=== PATIENT | female | born 2000 ===

== ENCOUNTER 2020-09-17 00:21 | Inpatient (IN) | payer BC ==
[2020-09-17] MEDS ORDERED: Sodium Chloride 0.9% 10 ML Syringe FLUSH PRN (00:44)
[2020-09-17] MEDS ORDERED: Misoprostol 200 MCG Tab PO PRN (00:44)
[2020-09-17] MEDS ORDERED: Lidocaine 1% 50 ML MDV INJECT PRN (00:44)
[2020-09-17] MEDS ORDERED: Nalbuphine 10 MG/1 ML Vial IVPUSH PRN (00:44)
[2020-09-17] MEDS ORDERED: Butorphanol 1 MG/ML SDV IVPUSH PRN (00:44)
[2020-09-17] MEDS ORDERED: Tranexamic Acid 1,000 MG in Sodium Chloride 0.9% 100 ML IV PRN (00:44)
[2020-09-17] MEDS ORDERED: Carboprost Tromethamine 250 MCG/1 ML Amp IM PRN (00:44)
[2020-09-17] MEDS ORDERED: Sodium Chloride 0.9% 2.5 ML Syringe FLUSH PRN (00:44)
[2020-09-17] MEDS ORDERED: Methylergonovine 0.2 MG/1 ML Amp IM PRN (00:44)
[2020-09-17] MEDS ORDERED: Sodium Chloride 0.9% 10 ML SDV IV PRN (00:44)
[2020-09-17] MEDS ORDERED: Water For Irrigation,Sterile 1,000 ML Container IRR PRN (00:44)
[2020-09-17] MEDS ORDERED: Oxytocin/0.9 % Sodium Chloride 30 UNIT/500 ML BAG IV SCH ×2 (00:45→05:15)
[2020-09-17] MEDS: Lactated Ringers 1,000 ML IV SCH ×3 (01:00→02:08)
[2020-09-17] MEDS ORDERED: Ropivacaine HCl/PF 100 ML ONE (01:24)
[2020-09-17] MEDS ORDERED: fentaNYL 100 MCG/2 ML SDV ONE (01:24)
--- NOTE | 2020-09-17 01:26 | PCM.LDHP ---
L&D History of Present Illness - General Date of Service: 09/17/20 Admit Problem/Dx: Patient Status Order with Admit Dx/Problem 09/17/20 00:44 Patient Status [ADT] Routine Admission Diagnosis/Problem Admission Diagnosis/Problem Source of Information: Patient History Limitations: Reports: No Limitations - History of Present Illness Introduction:: 20 year old G1 female at 37w2d (CRISTINA 10/06/2020 by LMP) presents to labor and delivery with regular contractions for the past 2-3 hours. Reports contractions are 2-5 minutes apart and pain 8/10 when they occur. Has tried Tylenol, increasing fluid intake and a warm shower with no relief. Also, complains of lightheadedness, dizziness but denies headache, visual changes or RUQ pain. Reports good movement. Denies leaking fluid or vaginal bleeding. - Related Data Allergies/Adverse Reactions: Allergies Allergy/AdvReac Type Severity Reaction Status Date / Time Penicillins Allergy Rash Verified 08/30/20 20:40 Home Medications: Home Meds Pnv #30/Iron Carb&Aspg/Fa/Om3 [OB Complete with DHA Softgel] 09/17/20 [History] H&P Review of Systems - Review of Systems: Review Of Systems: See Below General: Reports: No Symptoms Pulmonary: Reports: No Symptoms Cardiovascular: Reports: No Symptoms Gastrointestinal: Reports: Abdominal Pain Genitourinary: Reports: No Symptoms Musculoskeletal: Reports: Back Pain Skin: Reports: No Symptoms Psychiatric: Reports: No Symptoms Neurological: Reports: Dizziness L&D Exam - Exam Exam: See Below - OB Specific Contraction Frequency (min): 2-5 minutes Contraction Intensity: Moderate Movement: Active Heart Tones: Present Heart Tones per Min: 130 Heart Rate (FHR) Variability: Moderate (6-25 bmp) Presentation: Vertex - Johnson Score Johnson Score Cervix Position: Midposition (per nursing) Johnson Score Consistency: Soft Johnson Score Effacement: >80% Johnson Score Dilation: > 5 cm Johnson Score Infant's Station: -1 ,0 Johnson Score Total: 11 - Exam General: Alert Lungs: Normal Respiratory Effort Cardiovascular: Regular Rate GI/Abdominal Exam: Soft, Non-Tender Extremities: Normal Inspection, Non-Tender, No Pedal Edema Skin: Warm, Dry, Intact Psychiatric: Normal Mood Problem List Initiated/Reviewed/Updated: Yes Orders Last 24hrs: Active Orders 24 hr Category Date Time Status Patient Status [ADT] Routine ADT 09/17/20 00:44 Active Heart Tones [RC] CONTINUOUS Care 09/17/20 00:44 Active Non Stress Test [RC] PER UNIT ROUTINE Care 09/17/20 00:44 Active May Shower [RC] ASDIRECTED Care 09/17/20 00:44 Active Notify Provider [RC] PRN Care 09/17/20 00:44 Active Up ad Zandra [RC] ASDIRECTED Care 09/17/20 00:44 Active Vaginal Exam [RC] PRN Care 09/17/20 00:44 Active Vital Signs [RC] PER UNIT ROUTINE Care 09/17/20 00:44 Active CBC W/O DIFF,HEMOGRAM [HEME] Routine Lab 09/17/20 00:44 Ordered COMPREHENSIVE METABOLIC PN,CMP [CHEM] Routine Lab 09/17/20 00:44 Ordered CORONAVIRUS COVID-19 MARCELLO [MOLEC] Routine Lab 09/17/20 01:00 Received PROTEIN/CREATININE RATIO,URINE [URCHEM] Routine Lab 09/17/20 00:50 Ordered RPR (SYPHILIS SERO) W/ RFLX [REF] Routine Lab 09/17/20 00:44 Ordered TYPE AND SCREEN [BBK] Routine Lab 09/17/20 00:44 Ordered URIC ACID [CHEM] Routine Lab 09/17/20 00:44 Ordered URINALYSIS W/O MICROSCOPIC [UA W/O MICROSCOPIC] [URIN] Lab 09/17/20 00:51 Ordered Routine Butorphanol [Stadol] Med 09/17/20 00:44 Active 1 mg IVPUSH Q1H PRN Carboprost Tromethamine [Hemabate DS] Med 09/17/20 00:44 Active 250 mcg IM ASDIRECTED PRN Lactated Ringers [Ringers, Lactated] 1,000 ml Med 09/17/20 00:45 Active IV ASDIRECTED Lidocaine 1% [Xylocaine 1%] Med 09/17/20 00:44 Active 50 ml INJECT ONETIME PRN Methylergonovine [Methergine] Med 09/17/20 00:44 Active 0.2 mg IM ASDIRECTED PRN Nalbuphine [Nubain] Med 09/17/20 00:44 Active 10 mg IVPUSH Q1H PRN Oxytocin/0.9 % Sodium Chloride [Oxytocin 30 Unit/500 ML Med 09/17/20 00:45 Active -NS] 30 unit in 500 ml IV TITRATE Sodium Chloride 0.9% [Normal Saline] Med 09/17/20 00:44 Active 10 ml IV ASDIRECTED PRN Sodium Chloride 0.9% [Saline Flush] Med 09/17/20 00:44 Active 10 ml FLUSH ASDIRECTED PRN Sodium Chloride 0.9% [Saline Flush] Med 09/17/20 00:44 Active 2.5 ml FLUSH ASDIRECTED PRN Tranexamic Acid [Cyklokapron] 1,000 mg Med 09/17/20 00:44 Active Sodium Chloride 0.9% [Normal Saline] 100 ml IV ONETIME Water For Irrigation,Sterile [Sterile Water for Med 09/17/20 00:44 Active Irrigation] 1,000 ml IRR ASDIRECTED PRN miSOPROStoL [Cytotec] Med 09/17/20 00:44 Active 200 mcg PO ONETIME PRN Scalp Electrode [WOMSER] Per Unit Routine Oth 09/17/20 00:44 Ordered Peripheral IV Insertion Adult [OM.PC] Routine Oth 09/17/20 00:44 Ordered Resuscitation Status Routine Resus Stat 09/17/20 00:44 Ordered Medication Orders Butorphanol Tartrate (Stadol) 1 mg IVPUSH Q1H PRN PRN Reason: Pain Carboprost Tromethamine (Hemabate Ds) 250 mcg IM ASDIRECTED PRN PRN Reason: Post Hemorrhage Oxytocin/Sodium Chloride (Oxytocin 30 Unit/500 Ml-Ns) 30 unit in 500 mls @ 999 mls/hr IV TITRATE YOLANDA Tranexamic Acid 1,000 mg/ (Sodium Chloride) 110 mls @ 660 mls/hr IV ONETIME PRN PRN Reason: Bleeding Lactated Ringer's (Ringers, Lactated) 1,000 mls @ 150 mls/hr IV ASDIRECTED YOLANDA Lidocaine HCl (Xylocaine 1%) 50 ml INJECT ONETIME PRN PRN Reason: Laceration repair Methylergonovine Maleate (Methergine) 0.2 mg IM ASDIRECTED PRN PRN Reason: Post Hemorrhage Misoprostol (Cytotec) 200 mcg PO ONETIME PRN PRN Reason: Post Hemorrhage Nalbuphine HCl (Nubain) 10 mg IVPUSH Q1H PRN PRN Reason: Pain (severe 7-10) Sodium Chloride (Saline Flush) 10 ml FLUSH ASDIRECTED PRN PRN Reason: Keep Vein Open Sodium Chloride (Saline Flush) 2.5 ml FLUSH ASDIRECTED PRN PRN Reason: Keep Vein Open Sodium Chloride (Normal Saline) 10 ml IV ASDIRECTED PRN PRN Reason: IV Use Sterile Water (Sterile Water For Irrigation) 1,000 ml IRR ASDIRECTED PRN PRN Reason: delivery Assessment/Plan Comment:: 20 year old G1 female at 37w2d (CRISTINA 10/06/2020 by LMP) in spontaneous labor * Admit to labor and delivery * May receive epidural PRN for pain management * Rh positive, rubella immune, GBS negative * History of proteinuria and mild range BP upon admission, preeclampsia labs ordered * COVID-19 test pending Dispo: stable. Anticipate expectant management of labor.
--- NOTE | 2020-09-17 01:45 | PCM.PREANE ---
Preanesthetic Assessment - Anesthesia/Transfusion/Family Hx Anesthesia History: No Prior Anesthesia Family History of Anesthesia Reaction: No - Physical Assessment NPO Status Date: 09/16/20 NPO Status Time: 23:00 Height: 1.6 m ASA Class: 2 - Lab Values: Laboratory Last Values WBC 20.01 K/uL (4.0-11.0) H 09/17/20 00:56 RBC 4.54 M/uL (4.30-5.90) 09/17/20 00:56 Hgb 12.9 g/dL (12.0-16.0) 09/17/20 00:56 Hct 39.2 % (36.0-46.0) 09/17/20 00:56 MCV 86.3 fL (80.0-98.0) 09/17/20 00:56 MCH 28.4 pg (27.0-32.0) 09/17/20 00:56 MCHC 32.9 g/dL (31.0-37.0) 09/17/20 00:56 RDW Std Deviation 41.9 fl (28.0-62.0) 09/17/20 00:56 RDW Coeff of Helen 13 % (11.0-15.0) 09/17/20 00:56 Plt Count 491 K/uL (150-400) H 09/17/20 00:56 MPV 11.00 fL (7.40-12.00) 09/17/20 00:56 Nucleated RBC % 0.1 /100WBC 09/17/20 00:56 Nucleated RBCs # 0 K/uL 09/17/20 00:56 Urine Color YELLOW 09/17/20 01:00 Urine Appearance SLT CLOUDY 09/17/20 01:00 Urine pH 6.5 (5.0-8.0) 09/17/20 01:00 Ur Specific [place] 1.015 (1.001-1.035) 09/17/20 01:00 Urine Protein NEGATIVE mg/dL (NEGATIVE) 09/17/20 01:00 Urine Glucose (UA) NEGATIVE mg/dL (NEGATIVE) 09/17/20 01:00 Urine Ketones NEGATIVE mg/dL (NEGATIVE) 09/17/20 01:00 Urine Occult Blood NEGATIVE (NEGATIVE) 09/17/20 01:00 Urine Nitrite NEGATIVE (NEGATIVE) 09/17/20 01:00 Urine Bilirubin NEGATIVE (NEGATIVE) 09/17/20 01:00 Urine Urobilinogen 0.2 EU/dL (<2.0) 09/17/20 01:00 Ur Leukocyte Esterase TRACE (NEGATIVE) H 09/17/20 01:00 Ur Random Creatinine 87.4 mg/dL 09/17/20 01:00 U Random Total Protein 29.0 mg/dL (<11.9) H 09/17/20 01:00 Protein/Creatinin Ratio 0.3 09/17/20 01:00 - Allergies Allergies/Adverse Reactions: Allergies Allergy/AdvReac Type Severity Reaction Status Date / Time Penicillins Allergy Rash Verified 08/30/20 20:40 - Acknowledgements Anesthesia Type Planned: Epidural Pt an Appropriate Candidate for the Planned Anesthesia: Yes Alternatives and Risks of Anesthesia Discussed w Pt/Guardian: Yes Pt/Guardian Understands and Agrees with Anesthesia Plan: Yes PreAnesthesia Questionnaire - HOME MEDS Home Medications: Home Meds Pnv #30/Iron Carb&Aspg/Fa/Om3 [OB Complete with DHA Softgel] 09/17/20 [History] - CURRENT (IN HOUSE) MEDS Current Meds: Current Medications Butorphanol Tartrate (Stadol) 1 mg IVPUSH Q1H PRN PRN Reason: Pain Carboprost Tromethamine (Hemabate Ds) 250 mcg IM ASDIRECTED PRN PRN Reason: Post Hemorrhage Oxytocin/Sodium Chloride (Oxytocin 30 Unit/500 Ml-Ns) 30 unit in 500 mls @ 999 mls/hr IV TITRATE [facility] Tranexamic Acid 1,000 mg/ (Sodium Chloride) 110 mls @ 660 mls/hr IV ONETIME PRN PRN Reason: Bleeding Lactated Ringer's (Ringers, Lactated) 1,000 mls @ 150 mls/hr IV ASDIRECTED [facility] Last Admin: 09/17/20 01:00 Dose: 999 mls/hr Documented by: Lidocaine HCl (Xylocaine 1%) 50 ml INJECT ONETIME PRN PRN Reason: Laceration repair Methylergonovine Maleate (Methergine) 0.2 mg IM ASDIRECTED PRN PRN Reason: Post Hemorrhage Misoprostol (Cytotec) 200 mcg PO ONETIME PRN PRN Reason: Post Hemorrhage Nalbuphine HCl (Nubain) 10 mg IVPUSH Q1H PRN PRN Reason: Pain (severe 7-10) Sodium Chloride (Saline Flush) 10 ml FLUSH ASDIRECTED PRN PRN Reason: Keep Vein Open Sodium Chloride (Saline Flush) 2.5 ml FLUSH ASDIRECTED PRN PRN Reason: Keep Vein Open Sodium Chloride (Normal Saline) 10 ml IV ASDIRECTED PRN PRN Reason: IV Use Sterile Water (Sterile Water For Irrigation) 1,000 ml IRR ASDIRECTED PRN PRN Reason: delivery Discontinued Medications Fentanyl (Sublimaze) Confirm Administered Dose 100 mcg .ROUTE .STK-MED ONE Stop: 09/17/20 01:25 Ropivacaine (Naropin 0.2%) Confirm Administered Dose 100 mls @ as directed .ROUTE .STK-MED ONE Stop: 09/17/20 01:25
--- NOTE | 2020-09-17 01:48 | PCM.PRNOTE ---
- Free Text/Narrative Note: Anes Note Patient requests epidural for L&D. Sitting position, Level L3-L4 midline approach. Sterile technique. Chloraprep scrub to lumbar area. Sterile fenestrated drape applied. Epidural space easily achieved single attempt with ease using ESCOBAR technique. ESCOBAR at 3 cm. Cath threaded 5 cm with ease. Cath secured a t skin using sterile clear adhesive dressing. Test 0138 3 cc 1.5% lido with epi. 0141 Load 10 cc 0.2% ropiviciane with 1 mcg cc fentanyl added in slow divided doses. 0145 Pump started with 90 cc same solution. Rate is 8 cc hr with 6 cc q 20 min prn bolus. [place] well. Time with patient [id number] Abundio Fenton CRNA
[2020-09-17 01:51] LABS: BLOOD UREA NITROGEN,BUN 9 mg/dL (7.0-18.0); CARBON DIOXIDE,CO2 22.4 mmol/L (21.0-32.0); CHLORIDE,CL 102 mmol/L (98-107); GLUCOSE RANDOM 84 mg/dL (74-106); SODIUM,NA 140 mmol/L (136-145)
[2020-09-17] MEDS ORDERED: Terbutaline 1 MG/ML SDV SUBCUT PRN (05:01)
[2020-09-17] MEDS ORDERED: oxyCODONE 5 MG Tab PO PRN (09:34)
[2020-09-17] MEDS ORDERED: Bisacodyl 10 MG Supp RECTAL PRN (09:34)
[2020-09-17] MEDS ORDERED: Lanolin 100% Cream 7 GM Tube TOP PRN (09:34)
[2020-09-17] MEDS ORDERED: Acetaminophen 500 MG Tab PO PRN (09:34)
[2020-09-17] MEDS ORDERED: Ibuprofen 400 MG Tab PO PRN (09:34)
[2020-09-17] MEDS ORDERED: Benzocaine/Menthol 20%-0.5% Spray 78 GM Cannister TOP PRN (09:34)
[2020-09-17] MEDS ORDERED: Witch Hazel Medicated Pads 40/Jar TOP PRN (09:34)
--- NOTE | 2020-09-17 09:46 | PCM.DEL ---
L & D Note - General Info Date of Service: 09/17/20 Mother's Due Date: 10/06/20 - Delivery Note Labor: Augmented by Oxytocin Delivery Outcome: Livebirth Infant Delivery Method: Spontaneous Vaginal Delivery-Single Presentation: Left Occiput Anterior (FLAVIA) Nuchal Cord: None Anesthesia Type: Epidural Amniotic Fluid Description: Clear Episiotomy Type: None Laceration: 2nd Degree Suture type: Vicryl Suture size: 3-0 Placenta: Intact, Spontaneous Cord: 3 Vessels Estimated Blood Loss: 250 Resuscitation Needed: No Harris: Bulb Syringe, Stimulated, Warmed, [place] Used Score 1 min: 9 Score 5 min: 9 Delivery Comments (Free Text/Narrative):: Dictation #[id number] - General Info Date of Service: 09/17/20 Admission Dx/Problem (Free Text): Patient Status Order with Admit Dx/Problem 09/17/20 00:44 Patient Status [ADT] Routine Admission Diagnosis/Problem Admission Diagnosis/Problem - Patient Data Weight - Most Recent: 133 lb Lab Results Last 24 Hours: Laboratory Results - last 24 hr 09/17/20 09/17/20 09/17/20 Range/Units 00:56 00:56 00:56 WBC 20.01 H (4.0-11.0) K/uL RBC 4.54 (4.30-5.90) M/uL Hgb 12.9 (12.0-16.0) g/dL Hct 39.2 (36.0-46.0) % MCV 86.3 (80.0-98.0) fL MCH 28.4 (27.0-32.0) pg MCHC 32.9 (31.0-37.0) g/dL RDW Std Deviation 41.9 (28.0-62.0) fl RDW Coeff of Helen 13 (11.0-15.0) % Plt Count 491 H (150-400) K/uL MPV 11.00 (7.40-12.00) fL Nucleated RBC % 0.1 /100WBC Nucleated RBCs # 0 K/uL Sodium 140 (136-145) mmol/L Potassium 4.0 (3.5-5.1) mmol/L Chloride 102 (98-107) mmol/L Carbon Dioxide 22.4 (21.0-32.0) mmol/L BUN 9 (7.0-18.0) mg/dL Creatinine 0.6 (0.6-1.0) mg/dL Est Cr Clr Drug Dosing TNP Estimated GFR (MDRD) > 60.0 ml/min Glucose 84 (74-106) mg/dL Uric Acid 3.0 (2.6-7.2) mg/dL Calcium 9.9 (8.5-10.1) mg/dL Total Bilirubin 0.3 (0.2-1.0) mg/dL AST 14 L (15-37) IU/L ALT 23 (14-63) IU/L Alkaline Phosphatase 208 H (46-116) U/L Total Protein 7.6 (6.4-8.2) g/dL Albumin 3.4 (3.4-5.0) g/dL Globulin 4.2 H (2.6-4.0) g/dL Albumin/Globulin Ratio 0.8 L (0.9-1.6) Urine Color Urine Appearance Urine pH (5.0-8.0) Ur Specific [place] (1.001-1.035) Urine Protein (NEGATIVE) mg/dL Urine Glucose (UA) (NEGATIVE) mg/dL Urine Ketones (NEGATIVE) mg/dL Urine Occult Blood (NEGATIVE) Urine Nitrite (NEGATIVE) Urine Bilirubin (NEGATIVE) Urine Urobilinogen (<2.0) EU/dL Ur Leukocyte Esterase (NEGATIVE) Ur Random Creatinine mg/dL U Random Total Protein (<11.9) mg/dL Protein/Creatinin Ratio SARS-CoV-2 RNA (MARCELLO) (NEGATIVE) Blood Type A POSITIVE Antibody Screen NEGATIVE 09/17/20 09/17/20 09/17/20 Range/Units 01:00 01:00 01:00 WBC (4.0-11.0) K/uL RBC (4.30-5.90) M/uL Hgb (12.0-16.0) g/dL Hct (36.0-46.0) % MCV (80.0-98.0) fL MCH (27.0-32.0) pg MCHC (31.0-37.0) g/dL RDW Std Deviation (28.0-62.0) fl RDW Coeff of Helen (11.0-15.0) % Plt Count (150-400) K/uL MPV (7.40-12.00) fL Nucleated RBC % /100WBC Nucleated RBCs # K/uL Sodium (136-145) mmol/L Potassium (3.5-5.1) mmol/L Chloride (98-107) mmol/L Carbon Dioxide (21.0-32.0) mmol/L BUN (7.0-18.0) mg/dL Creatinine (0.6-1.0) mg/dL Est Cr Clr Drug Dosing Estimated GFR (MDRD) ml/min Glucose (74-106) mg/dL Uric Acid (2.6-7.2) mg/dL Calcium (8.5-10.1) mg/dL Total Bilirubin (0.2-1.0) mg/dL AST (15-37) IU/L ALT (14-63) IU/L Alkaline Phosphatase (46-116) U/L Total Protein (6.4-8.2) g/dL Albumin (3.4-5.0) g/dL Globulin (2.6-4.0) g/dL Albumin/Globulin Ratio (0.9-1.6) Urine Color YELLOW Urine Appearance SLT CLOUDY Urine pH 6.5 (5.0-8.0) Ur Specific [place] 1.015 (1.001-1.035) Urine Protein NEGATIVE (NEGATIVE) mg/dL Urine Glucose (UA) NEGATIVE (NEGATIVE) mg/dL Urine Ketones NEGATIVE (NEGATIVE) mg/dL Urine Occult Blood NEGATIVE (NEGATIVE) Urine Nitrite NEGATIVE (NEGATIVE) Urine Bilirubin NEGATIVE (NEGATIVE) Urine Urobilinogen 0.2 (<2.0) EU/dL Ur Leukocyte Esterase TRACE H (NEGATIVE) Ur Random Creatinine 87.4 mg/dL U Random Total Protein 29.0 H (<11.9) mg/dL Protein/Creatinin Ratio 0.3 SARS-CoV-2 RNA (MARCELLO) NEGATIVE (NEGATIVE) Blood Type Antibody Screen Med Orders - Current: Current Medications Acetaminophen (Tylenol Extra Strength) 500 mg PO Q4H PRN PRN Reason: Pain Acetaminophen (Tylenol Extra Strength) 1,000 mg PO Q4H PRN PRN Reason: Pain Benzocaine/Menthol (Dermoplast Pain Relief 20%-0.5% [employer]) 78 gm TOP ASDIRECTED PRN PRN Reason: Perineal Comfort Measure Bisacodyl (Dulcolax) 10 mg RECTAL ONETIME PRN PRN Reason: Constipation Butorphanol Tartrate (Stadol) 1 mg IVPUSH Q1H PRN PRN Reason: Pain Carboprost Tromethamine (Hemabate Ds) 250 mcg IM ASDIRECTED PRN PRN Reason: Post Hemorrhage Docusate Sodium (Colace) 100 mg PO BID PRN PRN Reason: Constipation Emollient Ointment (Lansinoh Hpa) 0 gm TOP ASDIRECTED PRN PRN Reason: Sore Nipples Oxytocin/Sodium Chloride (Oxytocin 30 Unit/500 Ml-Ns) 30 unit in 500 mls @ 999 mls/hr IV TITRATE YOLANDA Tranexamic Acid 1,000 mg/ (Sodium Chloride) 110 mls @ 660 mls/hr IV ONETIME PRN PRN Reason: Bleeding Lactated Ringer's (Ringers, Lactated) 1,000 mls @ 150 mls/hr IV ASDIRECTED YOLANDA Last Admin: 09/17/20 01:29 Dose: 999 mls/hr Documented by: Oxytocin/Sodium Chloride (Oxytocin 30 Unit/500 Ml-Ns) 30 unit in 500 mls @ 2 mls/hr IV TITRATE YOLANDA; Protocol Last Titration: 09/17/20 07:15 Dose: 6 munits/min, 6 mls/hr Documented by: Ibuprofen (Motrin) 400 mg PO Q4H PRN PRN Reason: Pain Ibuprofen (Motrin) 800 mg PO Q6H PRN PRN Reason: Pain Lidocaine HCl (Xylocaine 1%) 50 ml INJECT ONETIME PRN PRN Reason: Laceration repair Methylergonovine Maleate (Methergine) 0.2 mg IM ASDIRECTED PRN PRN Reason: Post Hemorrhage Misoprostol (Cytotec) 200 mcg PO ONETIME PRN PRN Reason: Post Hemorrhage Nalbuphine HCl (Nubain) 10 mg IVPUSH Q1H PRN PRN Reason: Pain (severe 7-10) Oxycodone HCl (Oxycodone) 5 mg PO Q2H PRN PRN Reason: Pain Sodium Chloride (Saline Flush) 10 ml FLUSH ASDIRECTED PRN PRN Reason: Keep Vein Open Sodium Chloride (Saline Flush) 2.5 ml FLUSH ASDIRECTED PRN PRN Reason: Keep Vein Open Sodium Chloride (Normal Saline) 10 ml IV ASDIRECTED PRN PRN Reason: IV Use Sterile Water (Sterile Water For Irrigation) 1,000 ml IRR ASDIRECTED PRN PRN Reason: delivery Terbutaline Sulfate (Brethine) 0.25 mg SUBCUT ASDIRECTED PRN PRN Reason: Tacysystole Witch Cassandra (Tucks) 1 pad TOP ASDIRECTED PRN PRN Reason: comfort care Discontinued Medications Fentanyl (Sublimaze) Confirm Administered Dose 100 mcg .ROUTE .STK-MED ONE Stop: 09/17/20 01:25 Ropivacaine (Naropin 0.2%) Confirm Administered Dose 100 mls @ as directed .ROUTE .STK-MED ONE Stop: 09/17/20 01:25 - Problem List Review Problem List Initiated/Reviewed/Updated: Yes - My Orders Last 24 Hours: My Active Orders 09/17/20 00:44 May Shower [RC] ASDIRECTED Notify Provider [RC] PRN Up ad Zandra [RC] ASDIRECTED Vital Signs [RC] PER UNIT ROUTINE Butorphanol [Stadol] 1 mg IVPUSH Q1H PRN Carboprost Tromethamine [Hemabate DS] 250 mcg IM ASDIRECTED PRN Lidocaine 1% [Xylocaine 1%] 50 ml INJECT ONETIME PRN Methylergonovine [Methergine] 0.2 mg IM ASDIRECTED PRN Nalbuphine [Nubain] 10 mg IVPUSH Q1H PRN Sodium Chloride 0.9% [Normal Saline] 10 ml IV ASDIRECTED PRN Sodium Chloride 0.9% [Saline Flush] 10 ml FLUSH ASDIRECTED PRN Sodium Chloride 0.9% [Saline Flush] 2.5 ml FLUSH ASDIRECTED PRN Tranexamic Acid [Cyklokapron] 1,000 mg Sodium Chloride 0.9% [Normal Saline] 100 ml IV ONETIME Water For Irrigation,Sterile [Sterile Water for Irrigation] 1,000 ml IRR ASDIRECTED PRN miSOPROStoL [Cytotec] 200 mcg PO ONETIME PRN Scalp Electrode [WOMSER] Per Unit Routine Peripheral IV Insertion Adult [OM.PC] Routine Resuscitation Status Routine 09/17/20 00:45 Lactated Ringers [Ringers, Lactated] 1,000 ml IV ASDIRECTED Oxytocin/0.9 % Sodium Chloride [Oxytocin 30 Unit/500 ML-NS] 30 unit in 500 ml IV TITRATE 09/17/20 00:56 RPR (SYPHILIS SERO) W/ RFLX [REF] Routine 09/17/20 05:01 Bedrest Bathroom Privileges [RC] ASDIRECTED Notify Provider [RC] PRN Oxygen Therapy [RC] ASDIRECTED Vital Signs [RC] PER UNIT ROUTINE Terbutaline [Brethine] 0.25 mg SUBCUT ASDIRECTED PRN 09/17/20 05:15 Oxytocin/0.9 % Sodium Chloride [Oxytocin 30 Unit/500 ML-NS] 30 unit in 500 ml IV TITRATE Medication Administration Instruction [OM.PC] Q3H 09/17/20 09:34 Acetaminophen [Tylenol Extra Strength] 1,000 mg PO Q4H PRN Acetaminophen [Tylenol Extra Strength] 500 mg PO Q4H PRN Benzocaine/Menthol [Dermoplast Pain Relief 20%-0.5% [employer]] 78 gm TOP ASDIRECTED PRN Docusate Sodium [Colace] 100 mg PO BID PRN Ibuprofen [Motrin] 400 mg PO Q4H PRN Ibuprofen [Motrin] 800 mg PO Q6H PRN Lanolin [Lansinoh HPA] See Dose Instructions TOP ASDIRECTED PRN bisacodyL [Dulcolax] 10 mg RECTAL ONETIME PRN oxyCODONE 5 mg PO Q2H PRN witch Cassandra [Tucks] 1 pad TOP ASDIRECTED PRN 09/17/20 09:35 Patient Status [ADT] Routine May Shower [RC] ASDIRECTED Up ad Zandra [RC] ASDIRECTED Vital Signs [RC] PER UNIT ROUTINE Assess Lochia [WOMSER] Per Unit Routine Assess Uterine Involution [WOMSER] Per Unit Routine Peripheral IV Discontinue [OM.PC] Routine 09/18/20 05:11 HEMOGLOBIN/HEMATOCRIT,HH [HEME] Timed - Plan Plan:: 20 year old G1 now P1 female s/p spontaneous vaginal delivery at 37w2d Routine cares * Rh positive, rubella immune, GBS negative * COVID-19 negative * Hgb 12.9 upon admission, EBL 250cc * Encourage ambulation and fluid intake today * PO pain medication ordered PRN * Plans to bottle feed Proteinuria * Asymptomatic * BP normotensive * Will continue to monitor symptoms/VS Dispo: stable. Anticipate routine course.
[2020-09-17] MEDS: Docusate Sodium 100 MG Cap PO PRN (10:58)
[2020-09-17] MEDS: Ibuprofen 800 MG Tab PO PRN ×2 (10:59→20:03)
--- NOTE | 2020-09-17 14:29 | OR ---
SURGEON: BLESSING BROWN MD DATE OF PROCEDURE: 09/17/2020 PREOPERATIVE DIAGNOSES: 1. A 37-2/7 weeks' intrauterine . 2. Spontaneous labor. 3. Proteinuria. POSTOPERATIVE DIAGNOSES: 1. A 37-2/7 weeks' intrauterine . 2. Spontaneous labor. 3. Proteinuria. PROCEDURE: Spontaneous vaginal delivery, second-degree perineal laceration repair PRIMARY SURGEON: Blessing Brown MD ANESTHESIA: Epidural. COMPLICATIONS: None known. ESTIMATED BLOOD LOSS: 250 mL. BRIEF HISTORY: The patient is a 20-year-old, 1 female, who presented to Labor and Delivery at 37 weeks and 2 days in spontaneous labor. Upon admission, her cervical exam was 4 to 5 cm, 80% effaced, and 0 station with contractions every 2 to 5 minutes. The patient has a recent history of proteinuria noted at the clinic, however, her blood pressures have been normotensive. Initial blood pressure upon arrival to Labor and Delivery was mild range. Preeclampsia labs were then obtained. FINDINGS: Normal-appearing female in cephalic presentation. Clear amniotic fluid. score of 9 and 9. Weight not yet available at time of dictation. Second- degree perineal laceration. DESCRIPTION OF PROCEDURE: The patient was admitted to Labor and Delivery at approximately 0045 on 09/17/2020. She received an epidural shortly thereafter. After receiving epidural, her contractions spaced out and Pitocin at 2 units was then initiated. Cervical exam at approximately 8 a.m. was 6/90/0. Artificial rupture of membranes was performed at that time after consent was obtained. A small amount of clear fluid noted. At approximately 9 a.m., nursing staff called to report the patient completely dilated and +2 station. Upon my arrival to the room, shortly thereafter, the patient started pushing efforts with good descent after a few contractions. 's head delivered atraumatically followed by the rest of the body. Nose and mouth suctioned with bulb. Cord clamped and cut after 60 seconds. The infant handed to mother and awaiting nursing staff. The placenta was then delivered intact after cord blood gases were obtained. Inspection of the cervix, vaginal sidewalls, and perineum revealed a second-degree perineal laceration which was repaired with a 3-0 Vicryl in the normal fashion. Hemostasis was then noted. Sponge, lap, and needle counts were correct x2. The patient tolerated the procedure well, and and mother are recovering in delivery room at this time. ANA MARIA IBANEZ /[id number] MTDD
[2020-09-17] MEDS: Acetaminophen 500 MG Tab PO PRN (16:14)
[2020-09-18] MEDS: Docusate Sodium 100 MG Cap PO PRN (00:53)
[2020-09-18] MEDS: Acetaminophen 500 MG Tab PO PRN (00:53)
[2020-09-18] MEDS: Ibuprofen 800 MG Tab PO PRN ×2 (03:45→14:05)
--- NOTE | 2020-09-18 06:50 | PCM48HPAN ---
Post Anesthesia Note - EVALUATION WITHIN 48HRS OF ANESTHETIC Vital Signs in Normal Range: Yes Patient Participated in Evaluation: Yes Respiratory Function Stable: Yes Airway Patent: Yes Cardiovascular Function Stable: Yes Hydration Status Stable: Yes Pain Control Satisfactory: Yes Nausea and Vomiting Control Satisfactory: Yes Mental Status Recovered: Yes Vital Signs: Last Vital Signs Temp 36.6 C 09/18/20 03:45 Pulse 83 09/18/20 03:45 Resp 16 09/18/20 03:45 BP 131/72 09/18/20 03:45 Pulse Ox 96 09/18/20 03:45
--- NOTE | 2020-09-18 08:56 | PCM.PNPP ---
- General Info Date of Service: 09/18/20 Functional Status: Reports: Pain Controlled, Tolerating Diet, Ambulating, Urinating - Review of Systems General: Reports: Fatigue. Denies: Fever, Weakness Pulmonary: Denies: Shortness of Breath Cardiovascular: Denies: Chest Pain, Palpitations, Lightheadedness Gastrointestinal: Denies: Abdominal Pain, Nausea, Vomiting Genitourinary: Denies: Flank Pain Musculoskeletal: Reports: No Symptoms Skin: Reports: No Symptoms Neurological: Reports: No Symptoms Psychiatric: Reports: No Symptoms - General Info Date of Service: 09/18/20 - Patient Data Vital Signs - Most Recent: Last Vital Signs Temp 36.4 C 09/18/20 08:26 Pulse 84 09/18/20 08:26 Resp 17 09/18/20 08:26 BP 121/86 09/18/20 08:26 Pulse Ox 97 09/18/20 08:26 Weight - Most Recent: 60.328 kg Lab Results - Last 24 Hours: Laboratory Results - last 24 hr 09/18/20 Range/Units 06:10 Hgb 9.1 L (12.0-16.0) g/dL Hct 28.1 L (36.0-46.0) % Med Orders - Current: Current Medications Acetaminophen (Tylenol Extra Strength) 500 mg PO Q4H PRN PRN Reason: Pain Acetaminophen (Tylenol Extra Strength) 1,000 mg PO Q4H PRN PRN Reason: Pain Last Admin: 09/18/20 00:53 Dose: 1,000 mg Documented by: Benzocaine/Menthol (Dermoplast Pain Relief 20%-0.5% Holly) 78 gm TOP ASDIRECTED PRN PRN Reason: Perineal Comfort Measure Last Admin: 09/17/20 10:57 Dose: 1 canister Documented by: Bisacodyl (Dulcolax) 10 mg RECTAL ONETIME PRN PRN Reason: Constipation Butorphanol Tartrate (Stadol) 1 mg IVPUSH Q1H PRN PRN Reason: Pain Carboprost Tromethamine (Hemabate Ds) 250 mcg IM ASDIRECTED PRN PRN Reason: Post Hemorrhage Docusate Sodium (Colace) 100 mg PO BID PRN PRN Reason: Constipation Last Admin: 09/18/20 00:53 Dose: 100 mg Documented by: Emollient Ointment (Lansinoh Hpa) 0 gm TOP ASDIRECTED PRN PRN Reason: Sore Nipples Oxytocin/Sodium Chloride (Oxytocin 30 Unit/500 Ml-Ns) 30 unit in 500 mls @ 999 mls/hr IV TITRATE YOLANDA Tranexamic Acid 1,000 mg/ (Sodium Chloride) 110 mls @ 660 mls/hr IV ONETIME PRN PRN Reason: Bleeding Lactated Ringer's (Ringers, Lactated) 1,000 mls @ 150 mls/hr IV ASDIRECTED YOLANDA Last Admin: 09/17/20 01:29 Dose: 999 mls/hr Documented by: Oxytocin/Sodium Chloride (Oxytocin 30 Unit/500 Ml-Ns) 30 unit in 500 mls @ 2 mls/hr IV TITRATE YOLANDA; Protocol Last Titration: 09/17/20 07:15 Dose: 6 munits/min, 6 mls/hr Documented by: Ibuprofen (Motrin) 400 mg PO Q4H PRN PRN Reason: Pain Ibuprofen (Motrin) 800 mg PO Q6H PRN PRN Reason: Pain Last Admin: 09/18/20 03:45 Dose: 800 mg Documented by: Lidocaine HCl (Xylocaine 1%) 50 ml INJECT ONETIME PRN PRN Reason: Laceration repair Methylergonovine Maleate (Methergine) 0.2 mg IM ASDIRECTED PRN PRN Reason: Post Hemorrhage Misoprostol (Cytotec) 200 mcg PO ONETIME PRN PRN Reason: Post Hemorrhage Nalbuphine HCl (Nubain) 10 mg IVPUSH Q1H PRN PRN Reason: Pain (severe 7-10) Oxycodone HCl (Oxycodone) 5 mg PO Q2H PRN PRN Reason: Pain Sodium Chloride (Saline Flush) 10 ml FLUSH ASDIRECTED PRN PRN Reason: Keep Vein Open Sodium Chloride (Saline Flush) 2.5 ml FLUSH ASDIRECTED PRN PRN Reason: Keep Vein Open Sodium Chloride (Normal Saline) 10 ml IV ASDIRECTED PRN PRN Reason: IV Use Sterile Water (Sterile Water For Irrigation) 1,000 ml IRR ASDIRECTED PRN PRN Reason: delivery Terbutaline Sulfate (Brethine) 0.25 mg SUBCUT ASDIRECTED PRN PRN Reason: Tacysystole Witch Cassandra (Tucks) 1 pad TOP ASDIRECTED PRN PRN Reason: comfort care Last Admin: 09/17/20 10:58 Dose: 1 tub Documented by: Discontinued Medications Fentanyl (Sublimaze) Confirm Administered Dose 100 mcg .ROUTE .STK-MED ONE Stop: 09/17/20 01:25 Ropivacaine (Naropin 0.2%) Confirm Administered Dose 100 mls @ as directed .ROUTE .STK-MED ONE Stop: 09/17/20 01:25 - Interaction Support Person: Significant Other - Recovery Exam Fundal Tone: Firm Fundal Level: 1 Fingerbreadths Below Umbilicus Fundal Placement: Midline Lochia Amount: Scant Lochia Color: Rubra/Red Perineum Description: Edematous Episiotomy/Laceration: Approximated Bladder Status: Voiding Urinary Elimination: Voided - Exam General: Alert, Oriented Lungs: Normal Respiratory Effort Cardiovascular: Regular Rate GI/Abdominal Exam: Normal Bowel Sounds, Soft Extremities: Pedal Edema (trace). No: Diane's Sign Skin: Warm, Dry, Intact Neurological: No New Focal Deficit Psy/Mental Status: Alert, Normal Affect, Normal Mood - Problem List & Annotations (1) Vaginal delivery SNOMED Code(s): 984850778 Code(s): O80 - ENCOUNTER FOR FULL-TERM UNCOMPLICATED DELIVERY Status: Acute Current Visit: Yes - Problem List Review Problem List Initiated/Reviewed/Updated: Yes - My Orders Last 24 Hours: My Active Orders 09/18/20 08:54 Ready for Discharge [RC] PER UNIT ROUTINE - Assessment Assessment:: PPD 1 status post - Plan Plan:: 20 year old G1 now P1 female s/p spontaneous vaginal delivery at 37w2d PPD1. Patient is doing well overall, bottlefeeding. Has good social support from mother and boyfriend. Is ready to go home today. Discharge to home. Discharge instructions reviewed. Follow up at [facility] 4 weeks.
== END 2020-09-18 14:35 | disposition home or self-care (01) | DRG 560 ==
LOC: MW.OB 00:21 → MW.OBCHECK 00:21 → MW.OB 00:44 → MW.OBCHECK 00:44 → UNDOADMOB 00:44 → MW.OB 09:25 → INTOOBSV 09-18 09:25 → OBSVTOIN 09-18 09:25 → UNDODISOB 09-18 14:35
PROVIDERS: ADMIT Obstetrics & Gynecology; ATTEND Obstetrics & Gynecology
PROC: 10E0XZZ Delivery of Products of Conception, External Approach (ICD-10-PCS; principal; 2020-09-18)
PROC: 0KQM0ZZ Repair Perineum Muscle, Open Approach (ICD-10-PCS; 2020-09-18)
PROC: 3E0R3BZ Introduction of Anesthetic Agent into Spinal Canal, Percutaneous Approach (ICD-10-PCS; 2020-09-18)
PROC: 00HU33Z Insertion of Infusion Device into Spinal Canal, Percutaneous Approach (ICD-10-PCS; 2020-09-18)
DX: O12.14 Gestational proteinuria, complicating childbirth (principal); Z3A.37 37 weeks gestation of pregnancy; Z37.0 Single live birth; O70.1 Second degree perineal laceration during delivery; Z20.822 Contact with and (suspected) exposure to COVID-19
CPT/HCPCS: 01967; 36415; 59025; 59409; 80053; 81003; 82570; 84156; 84550; 85014; 85018; 85027; 86592; 86850; 86900; 86901; A9270-GY; J2590; J2795; J3010; J7120; U0002

== ENCOUNTER 2022-01-28 09:16 | Inpatient (IN) | payer BC ==
[2022-01-28] MEDS ORDERED: Misoprostol 200 MCG Tab PO PRN (09:38)
[2022-01-28] MEDS ORDERED: Sodium Chloride 0.9% 20 ML SDV IV PRN (09:38)
[2022-01-28] MEDS ORDERED: Sodium Chloride 0.9% 10 ML Syringe FLUSH PRN (09:38)
[2022-01-28] MEDS ORDERED: Methylergonovine 0.2 MG/1 ML Amp IM PRN (09:38)
[2022-01-28] MEDS ORDERED: Sodium Chloride 0.9% 2.5 ML Syringe FLUSH PRN (09:38)
[2022-01-28] MEDS ORDERED: Butorphanol 1 MG/ML SDV IVPUSH PRN (09:38)
[2022-01-28] MEDS ORDERED: Water For Irrigation,Sterile 1,000 ML Container IRR PRN (09:38)
[2022-01-28] MEDS ORDERED: Lidocaine 1% 50 ML MDV INJECT PRN (09:38)
[2022-01-28] MEDS ORDERED: ceFAZolin 2 GM in Premix Bag 1 BAG IV ONE (09:38)
[2022-01-28] MEDS ORDERED: Carboprost Tromethamine 250 MCG/1 ML Amp IM PRN (09:38)
[2022-01-28] MEDS ORDERED: Tranexamic Acid 1,000 MG in Sodium Chloride 0.9% 100 ML IV PRN (09:38)
[2022-01-28] MEDS: Lactated Ringers 1,000 ML IV SCH ×2 (09:42→10:43)
[2022-01-28] MEDS ORDERED: Oxytocin/0.9 % Sodium Chloride 30 UNIT/500 ML BAG IV SCH (09:45)
[2022-01-28] MEDS ORDERED: Ropivacaine in NACL,ISO-OSM/PF 400 ML ONE (09:55)
[2022-01-28] MEDS ORDERED: ePHEDrine 50 MG/ML SDV IVPUSH PRN ×2 (10:04)
[2022-01-28] MEDS ORDERED: Betamethasone Acetate/Betamethasone Sod Phosphate 30 MG/5 ML MDV IM ONE (10:13)
[2022-01-28] MEDS ORDERED: Ropivacaine in NACL,ISO-OSM/PF 800 MG in Premix Bag 1 BAG EPIDUR SCH ×2 (10:15)
[2022-01-28] MEDS ORDERED: Lanolin 100% Cream 7 GM Tube TOP PRN (14:09)
[2022-01-28] MEDS ORDERED: oxyCODONE 5 MG Tab PO PRN (14:09)
[2022-01-28] MEDS ORDERED: Acetaminophen 500 MG Tab PO PRN (14:09)
[2022-01-28] MEDS ORDERED: Ibuprofen 400 MG Tab PO PRN (14:09)
[2022-01-28] MEDS ORDERED: Benzocaine/Menthol 20%-0.5% Spray 78 GM Cannister TOP PRN (14:09)
[2022-01-28] MEDS ORDERED: Witch Hazel Medicated Pads 40/Jar TOP PRN (14:09)
[2022-01-28] MEDS ORDERED: Bisacodyl 10 MG Supp RECTAL PRN (14:09)
[2022-01-28] MEDS: Ibuprofen 800 MG Tab PO PRN (18:00)
[2022-01-29] MEDS: Acetaminophen 500 MG Tab PO PRN ×2 (02:01→18:35)
[2022-01-29] MEDS: Ibuprofen 800 MG Tab PO PRN ×2 (08:23→21:28)
[2022-01-29] MEDS: Docusate Sodium 100 MG Cap PO PRN ×2 (08:24→21:28)
[2022-01-30] MEDS: Ibuprofen 800 MG Tab PO PRN (10:19)
[2022-01-30] MEDS: Acetaminophen 500 MG Tab PO PRN (17:35)
== END 2022-01-30 18:15 | disposition home or self-care (01) | DRG 560 ==
LOC: MW.OBCHECK 09:16 → MW.OB 09:16 → MW.OBCHECK 09:37 → MW.OB 09:38 → OBSVTOIN 13:47 → MW.OB 19:00
PROVIDERS: ADMIT Obstetrics & Gynecology; ATTEND Obstetrics & Gynecology
PROC: 10E0XZZ Delivery of Products of Conception, External Approach (ICD-10-PCS; principal; 2022-01-28)
PROC: 3E0R3BZ Introduction of Anesthetic Agent into Spinal Canal, Percutaneous Approach (ICD-10-PCS; 2022-01-28)
PROC: 10907ZC Drainage of Amniotic Fluid, Therapeutic from Products of Conception, Via Natural or Artificial Opening (ICD-10-PCS; 2022-01-28)
PROC: 0HQ9XZZ Repair Perineum Skin, External Approach (ICD-10-PCS; 2022-01-28)
DX: O60.14X0 Preterm labor third trimester with preterm delivery third trimester, not applicable or unspecified (principal); O36.5930 Maternal care for other known or suspected poor fetal growth, third trimester, not applicable or unspecified; Z3A.36 36 weeks gestation of pregnancy; Z37.0 Single live birth; Z88.0 Allergy status to penicillin; Z87.891 Personal history of nicotine dependence; O70.0 First degree perineal laceration during delivery; Z20.822 Contact with and (suspected) exposure to COVID-19
CPT/HCPCS: 01967; 36415; 51702; 59025; 59409; 80305-QW; 82803; 85014; 85018; 85027; 86592; 86644; 86645; 86694; 86695; 86696; 86762; 86777; 86778; 86850; 86900; 86901; 87653; A9270-GY; J0702; J2590; J2795; J3370; J7050; J7120; U0002